=== PATIENT | female | born 1950 | race Caucasian/White ===

== ENCOUNTER → 2017-06-28 | Outpatient (CLI) | payer MEDICARE | END | disposition home or self-care (01) | LOC: LAB 12:30 → LAB SHORT 12:30 | PROVIDERS: Registered Nurse | DX: Z12.4 Encounter for screening for malignant neoplasm of cervix (principal) | CPT/HCPCS: G0123 ==

== ENCOUNTER 2019-04-17 07:30 | Day surgery (SDC) | payer MEDICARE ==
[~2019-04-17] VITALS: Ht 160 cm; Wt 85.3 kg
[~2019-04-17 07:30] MED LIST: ACET325 PO; ALIVE ONCE DAI1 EACH PO; CALCIUM + VIT1 EACH PO; COCONUT OIL100 GM PO; COLACE 2-IN-11 EACH PO; CRANBERRY PLUS1 EAC1 PO; Coq-10100 MG PO; FLUO10 PO; IBUP600 PO; MELATONIN 10 M1 EACH PO; PANT20 PO; TROSPIUM CHLORI20 MG PO; TURMERIC 500 M1 EACH
== END 2019-04-17 09:23 | disposition home or self-care (01) ==
LOC: ORSCSDS 07:30
PROVIDERS: Student in an Organized Health Care Education/Training Program
PROC: 0DB48ZX Excision of Esophagogastric Junction, Via Natural or Artificial Opening Endoscopic, Diagnostic (ICD-10-PCS; principal; 2019-04-17 08:45)
PROC: 0DB58ZX Excision of Esophagus, Via Natural or Artificial Opening Endoscopic, Diagnostic (ICD-10-PCS; principal; 2019-04-17 08:45)
DX: K21.9 Gastro-esophageal reflux disease without esophagitis (principal); R12 Heartburn; I10 Essential (primary) hypertension; F32.9 Major depressive disorder, single episode, unspecified; Z79.899 Other long term (current) drug therapy
CPT/HCPCS: 88305; J0330; J0461; J2405; J2704; J7120

== ENCOUNTER → 2020-12-04 | Outpatient (CLI) | payer MEDICARE | END | disposition home or self-care (01) | LOC: LAB SHORT 10:51 → LAB 10:51 | DX: N39.0 Urinary tract infection, site not specified (principal) | CPT/HCPCS: 87086 ==

== ENCOUNTER → 2022-01-27 | Outpatient (CLI) | payer MEDICARE | END | disposition home or self-care (01) | DX: R30.0 Dysuria (principal) ==

== ENCOUNTER → 2022-08-07 | Outpatient (CLI) | payer MEDICARE | END | disposition home or self-care (01) | LOC: LAB 08:50 → LAB SHORT 08:50 | DX: R30.0 Dysuria (principal) | CPT/HCPCS: 87077; 87086; 87186 ==

== ENCOUNTER 2023-01-29 22:37 | Observation (INO) | payer MEDICARE ==
[~2023-01-29] VITALS: Ht 160 cm; Wt 78.3 kg
[2023-01-29 23:14] LABS: BASOPHILS ABSOLUTE AUTO 0.03 K/mm3 (0.00-0.23); BASOPHILS PERCENT AUTO 0 % (0-2); EOSINOPHILS ABSOLUTE AUTO 0.11 K/mm3 (0.00-0.68); EOSINOPHILS PERCENT AUTO 1 % (0-6); Hemoglobin 11.8 g/dL (11.5-16.0); IMMATURE GRAN ABSOLUTE AUTO 0.02 K/mm3 (0.00-0.10); IMMATURE GRAN PERCENT AUTO 0 % (0-1); LYMPHOCYTES ABSOLUTE AUTO 2.79 K/mm3 (0.84-5.20); LYMPHOCYTES PERCENT AUTO 32 % (21-46); MONOCYTES ABSOLUTE AUTO 0.39 K/mm3 (0.16-1.47); MONOCYTES PERCENT AUTO 5 % (4-13); Mean Corpuscular HGB Conc 32.8 g/dL (31.5-36.5); Mean Corpuscular Volume 98 fL (80-100); Mean Platelet Volume 9.9 fL (9.1-12.4); NEUTROPHILS ABSOLUTE AUTO 5.37 K/mm3 (1.96-9.15); NEUTROPHILS PERCENT AUTO 62 % (41-73); Platelet Count 299 K/mm3 (150-400); RDW Coefficient Variation 13.5 % (11.7-14.2); RDW Standard Deviation 47.8 fL (35.1-46.3); Red Blood Cell Count 3.69 M/mm3 (3.80-5.20); White Blood Cell Count 8.71 K/mm3 (4.00-11.30)
[2023-01-29 23:32] LABS: Albumin, Blood 3.1 g/dL (3.4-5.0); Albumin/Globulin Ratio 0.7 (0.8-1.8); Bilirubin, Total 0.4 mg/dL (0.1-1.0); Bun/Creatinine Ratio 30.5 (12.0-20.0); Calcium, Blood 9.2 mg/dL (8.5-10.1); Creatinine, Blood 0.79 mg/dL (0.40-1.00); Globulin, Blood 4.4 g/dL (2.2-4.0); Potassium, Blood 3.7 mmol/L (3.5-5.5); Total Protein, Blood 7.5 g/dL (6.4-8.2)
[2023-01-30 02:34] LABS: Influenza A, PCR NEGATIVE (NEGATIVE); Influenza B, PCR NEGATIVE (NEGATIVE); Resp Syncytial Virus, PCR NEGATIVE (NEGATIVE); SARS-Cov-2 (COVID-19) PCR, MMC NEGATIVE (NEGATIVE)
[2023-01-30] MEDS ORDERED: PANTOPRAZOLE SO2010 PO (05:41)
[2023-01-30] MEDS ORDERED: METFORMIN HCL500 M2 PO (05:41)
[2023-01-30] MEDS ORDERED: TROSPIUM CHLORI20 M1 PO (05:41)
[2023-01-30] MEDS ORDERED: FLUO10 PO (05:41)
[2023-01-30] MEDS ORDERED: LISI20 PO (05:42)
[2023-01-30 07:51] VITALS: BP 177/88
[2023-01-30 09:23] LABS: Calcium, Blood 9.1 mg/dL (8.5-10.1); Creatinine, Blood 0.75 mg/dL (0.40-1.00); Potassium, Blood 4.4 mmol/L (3.5-5.5)
[2023-01-30 14:05] VITALS: BP 140/72
[2023-01-30 15:06] VITALS: BP 149/78
--- NOTE | 2023-01-30 17:53 | NUR ---
SHIFT SUMMARY: PATIENT A/OX4. PATIENT IS CALM, PLEASANT, COOPERATIVE c CARE PROVIDED AND ABLE TO MAKE NEEDS KNOWN. PATIENT DENIES CP/PRESSURE, SOB, N/V, DIZZINESS, AND GENERALIZED PAIN. PATIENT ON TELE SR/ST HR 93-103 BPM. BP HAS IMPROVED. PATIENT WAS ON 2L OF O2 VIA NC WHEN ARRIVED TO UNIT, PLACED ON RA AT AROUND 1510. PATIENT O2 ON RA HAS BEEN SATTING 92-96%. PATIENT RECEIVED IV LASIX THIS PM. PATIENT IS EATING AND DRINKING WELL, CONTINENCE OF BLADDER AND AMBULATES TO BATHROOM INDEPENDENTLY. PATIENT HAD A TOTAL OF 1,900 MLS YELLOW URINE OUTPUT THIS SHIFT. ECHO DONE TODAY c RESULT. PIV TO RAC SALINE LOCKED. CALL LIGHT IN REACH.
[2023-01-30 20:23] VITALS: BP 159/68
--- NOTE | 2023-01-31 03:09 | NUR ---
TELEMETRY MANOLO FROM TELE CALLED TO INFORM THIS NURSE THAT THE PTS HEART RATE WAS IN THE 130S. CHECKED ON PT WHO WAS JUST RETURNING TO BED AFTER USING THE RESTROOM. PT DENIES ANY CP, PRESSURE, DIZZINESS, OR PALPATATIONS. RTHYMN STRIP UPLOADED TO CHART BY TELE. WILL CONTINUE TO MONITOR.
--- NOTE | 2023-01-31 03:38 | NUR ---
TELEMETRY NOTIFIED OF HR BETWEEN 130-150. PT WAS UP OOB AND MOVING AROUND. PT BACK IN BED RESTING WITH HR AT 120. WILL CONTINUE TO MONITOR.
--- NOTE | 2023-01-31 04:06 | NUR ---
TELEMETRY NOTIFIED BY TELE OF RATE CHANGE FROM SR TO AFIB. CALLED TO REPORT TO HOSPITALIST DR DIAS. ORDERS PLACED.
--- NOTE | 2023-01-31 04:39 | NUR ---
CALLED TELE FOR REPORT OF RHYTHM. CURRENTLY PT IS AFIB AT 124. NO SIGNS OR SYMPTOMS. PT LYING IN BED RESTING. WILL CONTINUE TO MONITOR.
--- NOTE | 2023-01-31 04:42 | NUR ---
SHIFT SUMMARY PT IS A&O X4, CALM AND COOPERATIVE WITH CARE. INDEPENDENT IN ROOM/CONTINENT. PT CONVERTED FROM SR TO AFIB DURING SHIFT. SEE ORDERS. CURRENTLY PT IS AFIB AT 124. NO SIGNS OR SYMPTOMS. NOTIFIED. NO O2 THIS SHIFT, SATS ABOVE 92%. PT DENIES SHORTNESS OF BREATH AND SATES THAT THE TIGHTNESS SHE WAS EXPERIENCING HAS IMPROVED. PT SLEPT OFF AND ON THROUGHOUT THE NIGHT. BED KEPT IN LOWEST POSITION WITH CALL LIGHT WITHIN REACH. WILL CONTINUE TO MONITOR.
[2023-01-31 05:18] VITALS: BP 123/87
[2023-01-31 05:57] LABS: BASOPHILS ABSOLUTE AUTO 0.06 K/mm3 (0.00-0.23); BASOPHILS PERCENT AUTO 1 % (0-2); EOSINOPHILS ABSOLUTE AUTO 0.11 K/mm3 (0.00-0.68); EOSINOPHILS PERCENT AUTO 2 % (0-6); Hematocrit 37.3 % (33.0-51.0); Hemoglobin 12.3 g/dL (11.5-16.0); IMMATURE GRAN ABSOLUTE AUTO 0.02 K/mm3 (0.00-0.10); IMMATURE GRAN PERCENT AUTO 0 % (0-1); LYMPHOCYTES ABSOLUTE AUTO 2.87 K/mm3 (0.84-5.20); LYMPHOCYTES PERCENT AUTO 38 % (21-46); MONOCYTES ABSOLUTE AUTO 0.65 K/mm3 (0.16-1.47); MONOCYTES PERCENT AUTO 9 % (4-13); Mean Corpuscular HGB 31.5 pg (26.0-34.0); Mean Corpuscular Volume 95 fL (80-100); Mean Platelet Volume 10.6 fL (9.1-12.4); NEUTROPHILS ABSOLUTE AUTO 3.81 K/mm3 (1.96-9.15); NEUTROPHILS PERCENT AUTO 51 % (41-73); Platelet Count 321 K/mm3 (150-400); RDW Coefficient Variation 13.6 % (11.7-14.2); Red Blood Cell Count 3.91 M/mm3 (3.80-5.20); White Blood Cell Count 7.52 K/mm3 (4.00-11.30)
[2023-01-31 06:58] LABS: Albumin, Blood 3.1 g/dL (3.4-5.0); Albumin/Globulin Ratio 0.7 (0.8-1.8); Bilirubin, Total 0.6 mg/dL (0.1-1.0); Bun/Creatinine Ratio 25.4 (12.0-20.0); Calcium, Blood 9.1 mg/dL (8.5-10.1); Creatinine, Blood 0.75 mg/dL (0.40-1.00); Globulin, Blood 4.3 g/dL (2.2-4.0); Potassium, Blood 3.4 mmol/L (3.5-5.5); Total Protein, Blood 7.4 g/dL (6.4-8.2)
[2023-01-31 07:20] VITALS: BP 132/78
--- NOTE | 2023-01-31 12:16 | NUR ---
Met with patient to review advance directive. Pt is a very active person. 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 Her and her huasband have been discussing advance directives. They are having diffficulty getting the children to discuss them and so have not completed one. review of recent symptoms and medical care. Advised that on discharge get comprehensive labs and medical workup on all systems. Pt wants to be a full code at this time. Brief ly reviewed AD and choices. Provided our office number if they have question we can help with. Pt presents as having a strong support system. Advied her to do daily weights and track her intake. She laghed and we had a nurse moment of we are horrible patients! Will remain available after DC.
--- NOTE | 2023-01-31 13:42 | NUR ---
NOTE: PATIENT ON TELE, PER REPORT THIS AM FROM NOC RN PATIENT WAS CONVERTED TO AFIB AT AROUND 0100'SH HR 130'S-150'S BPM. THIS SHIFT, PATIENT AFIB HR RANGES 117-130'S BPM, c ACTIVITIES GOES UP TO 160'S. PATIENT DENIES CP/PRESSURE, PALPATATIONS, SOB, AND DIZZINESS. ALTHOUGH, PATIENT REPORTS "FEELING FLUSHED AND HOT." THIS RN WAS ON LUNCH BREAK AT AROUND 1309 WHEN MARKETING ROTATION ASSOCIATE CALLED, PER MARKETING ROTATION ASSOCIATEALISA PEARCE PATIENT CONVERTED TO NSR HR IN THE 70'S BPM. NOTIFIED DR. JACOME REGARDING THIS EVENT. PER DR. JACOME TO CONTINUE TO MONITOR PATIENT, AT AROUND 1500 IF RATE AND RHYTM CONTINUES THE SAME PATIENT MIGHT ABLE TO GO HOME THIS PM.
[2023-01-31] MEDS ORDERED: ELIQUIS5 M2 PO (15:09)
[2023-01-31] MEDS ORDERED: FURO20 PO (15:09)
[2023-01-31] MEDS ORDERED: METO25 PO (15:10)
[2023-01-31] MEDS ORDERED: POTCHL20ER PO (16:07)
--- NOTE | 2023-01-31 16:20 | NUR ---
SHIFT/DISCHARGE SUMMARY: SEE LAST NOTE EARLIER. PATIENT A/OX4. CALM, PLEASANT AND COOPERATIVE c CARE. USES CALL LIGHT APPROPRIATELY AND ABLE TO MAKE NEEDS KNOWN. PATIENT DENIES CP/PRESSURE, SOB, DIZZINESS, N/V AND GENERALIZED PAIN. AFIBRILE. PATIENT ON TELE, NSR SINCE 1310 HR IN THE 70'S BPM. PATIENT RECEIVED SCHEDULED MEDS PER EMAR. PATIENT REPORTS EAGER TO GO HOME TODAY, PER PATIENT "I'M HAVING A GREEN PARTY I HAVE 14 PEOPLE COMING TO MY HOUSE AND I WOULD LIKE TO BE THERE IF I CAN." DR. JACOME IS AWARE OF THIS REQUEST. PATIENT IS EATING AND DRINKING WELL, CONTINENCE OF BOWELS/BLADDER AND HAS BEEN AMBULATING TO BATHROOM T/O SHIFT. BP HAS IMPROVED. PIV TO RAC DC'D. PATIENT DISCHARGE HOME. DISCHARGE INSTRUCTIONS PACKET GIVEN TO PATIENT. EDUCATE PATIENT REGARDING ADMITTING DX'S OF ACUTE CHF, S/S, TX, SELF CARE, DAILY WEIGHTS, DIET AND TO FOLLOW UP c PCP. PATIENT VERBALIZED UNDERSTANDING AND NO FURTHER QUESTIONS. RX WAS FAXED TO PATIENT PREFERRED PHARMACY ([facility]). ALL PATIENT PERSONAL BELONGINGS WERE SENT HOME c THE PATIENT. PATIENT LEFT THE ROOM AT 1600 AND WAS TRANSPORTED VIA WHEELCHAIR BY BENDER HELPER STAFF, EMY BARCENAS TO PATIENT ENTRANCE.
== END 2023-01-31 15:44 | disposition home or self-care (01) ==
LOC: ER 22:37 → MEDS 22:38 → ERHOLD 22:38 → MEDS 01-30 07:42
PROVIDERS: Emergency Medicine; ADMIT Hospitalist
DX: I11.0 Hypertensive heart disease with heart failure (principal); I50.31 Acute diastolic (congestive) heart failure; I48.0 Paroxysmal atrial fibrillation; J96.01 Acute respiratory failure with hypoxia; I25.10 Atherosclerotic heart disease of native coronary artery without angina pectoris; E11.9 Type 2 diabetes mellitus without complications; K21.9 Gastro-esophageal reflux disease without esophagitis; Z87.891 Personal history of nicotine dependence; Z79.84 Long term (current) use of oral hypoglycemic drugs; Z79.899 Other long term (current) drug therapy; Z20.822 Contact with and (suspected) exposure to COVID-19
CPT/HCPCS: 0241U; 36415; 71046; 71260; 80048; 80053; 83605; 83880; 84145; 84443; 84484; 85025; 85379; 87040; 93005; 93010; 93306; 96365; 96366; 96372; 96375; 96376; 99285-25; A9270; C9113; G0378; J0456; J0692; J1650; J1940; J7050; Q9967

== ENCOUNTER 2023-04-05 05:57 | Day surgery (SDC) | payer MEDICARE ==
[2023-04-05] VITALS (13 sets, daily range): BP systolic 85–135; BP diastolic 49–108
[~2023-04-05] VITALS: Ht 157.5 cm; Wt 82.0 kg
[~2023-04-05 05:57] MED LIST changes: +ELIQUIS5 M2 PO; +FURO20 PO; +LISI20 PO; +METFORMIN HCL500 M2 PO; +METO25 PO; +PANTOPRAZOLE SO2010 PO; +POTCHL20ER PO; +TROSPIUM CHLORI20 M1 PO
[2023-04-05] MEDS ORDERED: JARDIANCE10 MG PO (06:25)
--- NOTE | 2023-04-05 07:35 | NUR ---
PT AWAKE AND CONVERSING APPROPRIATELY, DENIES PAIN POST PROCEDURE; VSS, PT ON RA 98%. PT'S AT BEDSIDE, ATTENTIVE.
--- NOTE | 2023-04-05 08:14 | NUR ---
PT DRESSED SELF WITHOUT ISSUE, IV REMOVED-CANNULA INTACT. PT AND RECEIVED DISCHARGE INSTRUCTIONS, MED LIST AND AFTER CARE INSTRUCTIONS; VERBALIZED GOOD UNDERSTANDING. PT LEFT FACILITY VIA W/C, CONDITION STABLE.
== END 2023-04-05 08:14 | disposition home or self-care (01) ==
LOC: MHTC 05:57
DX: I48.19 Other persistent atrial fibrillation (principal); I48.92 Unspecified atrial flutter; E78.5 Hyperlipidemia, unspecified; E11.9 Type 2 diabetes mellitus without complications; I50.30 Unspecified diastolic (congestive) heart failure; I11.0 Hypertensive heart disease with heart failure; Z79.84 Long term (current) use of oral hypoglycemic drugs
CPT/HCPCS: 93005; 93010; J2704; J7030

== ENCOUNTER 2023-10-21 06:38 | Day surgery (SDC) | payer MEDICARE ==
[~2023-10-21] VITALS: Ht 160 cm; Wt 84.3 kg
[2023-10-21] VITALS (13 sets, daily range): BP systolic 120–157; BP diastolic 59–79
[~2023-10-21 06:38] MED LIST changes: +Acetaminophen650 M1 PO; +COQ-10100 MG PO; +DOCU100 PO; +JARDIANCE10 MG PO; +TURMERIC500 M2 PO; +TYLENOL PM PO
[2023-10-21] MEDS ORDERED: CeFAZolin Sodium 2,000 MG in NS 100 ML IV SCH ×2 (06:40→16:00)
[2023-10-21] MEDS ORDERED: Tranexamic Acid 100 ML IV SCH (06:40)
[2023-10-21] MEDS ORDERED: Chlorhexidine Mouth Care 15 ML UDC MT SCH (06:40)
[2023-10-21] MEDS ORDERED: Ropivacaine 0.5% HCl/Pf 123.125 MG,EPINEPHrine HCL 0.25 MG,Ketorolac Tromethamine 15 MG... INFIL SCH (06:40)
[2023-10-21] MEDS ORDERED: Lactated Ringer's 1,000 ML IV SCH ×3 (06:40→10:10)
[2023-10-21] MEDS ORDERED: Acetaminophen 500 MG Tab PO SCH ×3 (06:40→16:00)
[2023-10-21] MEDS ORDERED: OxyCODONE HCL 10 MG TABCR PO SCH (06:40)
[2023-10-21] MEDS ORDERED: Midazolam HCl 1MG / ML 2ML Vial IV ONE (07:45)
[2023-10-21] MEDS ORDERED: FentaNYL Citrate 50 MCG/ML 2 ML Injection ONE (07:47)
[2023-10-21] MEDS ORDERED: Lidocaine HCl 2% 20 ML MDV ONE (07:47)
[2023-10-21] MEDS ORDERED: Bupivacaine 0.5% HCl 5 MG/ML 30MLVIAL ONE (07:47)
[2023-10-21] MEDS ORDERED: propofoL 40 ML IV ONE (07:47)
[2023-10-21] MEDS ORDERED: Docusate Sodium 100 MG Cap PO PRN (07:50)
[2023-10-21] MEDS ORDERED: OxyCODONE HCL 5 MG TAB PO PRN ×4 (07:55→10:15)
[2023-10-21] MEDS ORDERED: Bisacodyl 10 MG Supp PR PRN ×2 (07:55→10:10)
[2023-10-21] MEDS ORDERED: Ondansetron HCl 2 MG / ML 2ML Vial IV PRN ×2 (07:55→10:10)
--- NOTE | 2023-10-21 07:59 | NUR ---
Ambulatory in Day Surgery. History, Chart, Medications and Allergies reviewed before start of procedure. Lungs clear T/O to Auscultation. Patient confirms NPO status and agrees with scheduled surgery. Pre-Op teaching done. Pt verbalizes understanding. PT BELONGINGS PLACED UNDERNEATH GURNEY FOR SAFEKEEPING.
[2023-10-21] MEDS ORDERED: Promethazine HCl 25 MG Tab PO PRN ×2 (08:00→10:15)
[2023-10-21] MEDS ORDERED: HYDROmorphone HCl/Pf 1MG SYR IV PRN ×2 (08:00→10:15)
[2023-10-21] MEDS ORDERED: DiphenhydrAMINE HCL 25 MG Cap PO PRN ×2 (08:00→10:15)
[2023-10-21] MEDS ORDERED: Metoclopramide HCl 5MG / ML 2ML Vial IV PRN ×2 (08:05→10:10)
[2023-10-21] MEDS ORDERED: Magnesium Hydroxide Conc 10 ML UDC PO PRN ×2 (08:05→10:10)
[2023-10-21] MEDS ORDERED: ePHEDrine Sulfate 50 MG/ML 1ML Injection ONE (08:10)
[2023-10-21] MEDS ORDERED: Phenylephrine HCl 100 MCG/ML-NS 10MLSYR (1MG/10ML) ONE (08:37)
[2023-10-21] MEDS ORDERED: CO Q10 PO SCH (09:00)
[2023-10-21] MEDS ORDERED: propofoL 20 ML IV ONE (09:03)
[2023-10-21] MEDS ORDERED: Insulin Regular 100 UNIT/ML 10ML Vial SC SCH (11:30)
[2023-10-21 11:34] LABS: Calcium, Blood 8.6 mg/dL (8.5-10.1); Creatinine, Blood 1.1 mg/dL (0.40-1.00); Potassium, Blood 4.8 mmol/L (3.5-5.5)
--- NOTE | 2023-10-21 11:57 | NUR ---
ARRIVAL PT ARRIVED TO UNIT VIA RTKA. PT MEDICATED FOR PAIN PER EMAR. REPORTS TOLERABLE, DENIENS NUMBNESS BUT STATES LEG IS HEAVY. TOLERATING DIET WELL. NO NAUSEA. ON ROOM AIR. SPOUSE AT BEDSIDE. KELSIE HUDSON AND [facility] GROSS ON.
[2023-10-21] MEDS ORDERED: Ketorolac Tromethamine 15mg Vial IV SCH (12:00)
--- NOTE | 2023-10-21 17:56 | NUR ---
SHIFT SUMMARY POD 1 RTKA DRESSING TO LEG CDI. POLAR BECCA ON DURING SHIFT. PT AMBULATED WELL WITH THERAPY AND WILL WORK WITH THEM AGAIN IN THE MORNING. PAIN CONTROLLED PER EMAR. PT HAS VOIDED. TOLERATING DIET WELL.
[2023-10-21] MEDS ORDERED: Metoprolol Tartrate 25 MG Tab PO SCH (21:00)
[2023-10-21] MEDS ORDERED: Docusate Sodium 100 MG Cap PO SCH ×2 (21:00)
[2023-10-22 00:24] VITALS: BP 137/71
[2023-10-22 05:06] LABS: BASOPHILS ABSOLUTE AUTO 0.02 K/mm3 (0.00-0.23); BASOPHILS PERCENT AUTO 0 % (0-2); EOSINOPHILS ABSOLUTE AUTO 0.13 K/mm3 (0.00-0.68); EOSINOPHILS PERCENT AUTO 2 % (0-6); Hematocrit 30.5 % (33.0-51.0); IMMATURE GRAN ABSOLUTE AUTO 0.02 K/mm3 (0.00-0.10); IMMATURE GRAN PERCENT AUTO 0 % (0-1); LYMPHOCYTES ABSOLUTE AUTO 2.21 K/mm3 (0.84-5.20); LYMPHOCYTES PERCENT AUTO 35 % (21-46); MONOCYTES ABSOLUTE AUTO 0.41 K/mm3 (0.16-1.47); MONOCYTES PERCENT AUTO 7 % (4-13); Mean Corpuscular HGB Conc 32.8 g/dL (31.5-36.5); Mean Corpuscular Volume 101 fL (80-100); Mean Platelet Volume 9.8 fL (9.1-12.4); NEUTROPHILS ABSOLUTE AUTO 3.54 K/mm3 (1.96-9.15); NEUTROPHILS PERCENT AUTO 56 % (41-73); Platelet Count 234 K/mm3 (150-400); RDW Coefficient Variation 12.4 % (11.7-14.2); RDW Standard Deviation 45.8 fL (35.1-46.3); Red Blood Cell Count 3.03 M/mm3 (3.80-5.20); White Blood Cell Count 6.33 K/mm3 (4.00-11.30)
[2023-10-22 05:27] LABS: Bun/Creatinine Ratio 23.1 (12.0-20.0); Creatinine, Blood 1.04 mg/dL (0.40-1.00); Magnesium, Blood 1.6 mg/dL (1.6-2.4); Potassium, Blood 4.1 mmol/L (3.5-5.5)
[2023-10-22] MEDS ORDERED: Pantoprazole Sodium 20 MG Tab PO SCH (06:00)
[2023-10-22 07:21] VITALS: BP 146/53
--- NOTE | 2023-10-22 08:12 | NUR ---
SHIFT SUMMARY NOC. PT POD 1 FOR RIGHT TOTAL KNEE. PT A/O X4. PT AQUACEL AND JARRET WRAP C/D/I WITH POLAR PACK IN PLACE. PT MEDICATED FOR PAIN WITH REPORTED RELIEF OF SX. PT VOIDING URINE AND TOLERATING PO. PT AMBULATES TO BR WITH FWW, GAIT BELT, AND SBA. PT RESTED WITH EYES CLOSED AND CALL LIGHT IN REACH.
[2023-10-22] MEDS ORDERED: Furosemide 20 MG Tab PO SCH (09:00)
[2023-10-22] MEDS ORDERED: Aspirin 81 MG Chew PO SCH (09:00)
[2023-10-22] MEDS ORDERED: MetFORMIN HCl 500 mg PO SCH (09:00)
[2023-10-22] MEDS ORDERED: FLUoxetine HCl 10 MG Cap PO SCH (09:00)
[2023-10-22] MEDS ORDERED: Lisinopril 20 MG Tab PO SCH (09:00)
[2023-10-22] MEDS ORDERED: Trospium Chloride 20 MG Tab PO SCH (09:00)
[2023-10-22] MEDS ORDERED: Empagliflozin 10 MG TAB PO SCH (09:00)
--- NOTE | 2023-10-22 09:59 | NUR ---
DISCHARGE PT EDUCATED ON AND RECEIVED PRINTED DC INSTRUCTIONS AND VERB AN UNDERSTANDING. EXTRA DRESSINGS GIVEN TO PT. PT REPORTS ALL RX'S FILLED PRIOR TO SURGERY. PT REPORTS PAIN MANAGED, VOIDING SPONTANEOUSLY, AND CLEARED THERAPY. IV DC'D BY PERFECT BINDER FEEDER OFFBEARER. PT WAITING FOR RIDE HOME.
--- NOTE | 2023-10-22 11:43 | NUR ---
Pt. is awake and sitting in a recliner awaiting discharge when she welcomes my visit. Pt. is pleasant, and recognizes this sales negotiator from the community. Facilitated a life review and considered matters of pedro anf belief. Pt. displays evidence of a joyful and hopeful spirit. Prayed with Pt. Pt. verbalized gratitude for the prayer and the spiritual care visit.
== END 2023-10-22 11:30 | disposition home or self-care (01) ==
LOC: ORSCMMR 06:38 → ORD 08:00 → ORSCMMR 08:00 → SURS 10:18 → ORSCMMR 10:18 → SURS 10-22 11:30
PROVIDERS: Orthopaedic Surgery
PROC: 0SRC0JA Replacement of Right Knee Joint with Synthetic Substitute, Uncemented, Open Approach (ICD-10-PCS; principal; 2023-10-21 08:00)
DX: M17.11 Unilateral primary osteoarthritis, right knee (principal); I48.91 Unspecified atrial fibrillation; E11.22 Type 2 diabetes mellitus with diabetic chronic kidney disease; I12.9 Hypertensive chronic kidney disease with stage 1 through stage 4 chronic kidney disease, or unspecified chronic kidney disease; N18.9 Chronic kidney disease, unspecified; E66.9 Obesity, unspecified; Z68.32 Body mass index [BMI] 32.0-32.9, adult; K21.9 Gastro-esophageal reflux disease without esophagitis; Z79.01 Long term (current) use of anticoagulants; Z79.84 Long term (current) use of oral hypoglycemic drugs; Z79.899 Other long term (current) drug therapy
CPT/HCPCS: 36415; 73560-RT; 80048; 82947; 83735; 85025; 97110; 97116; 97162; A9270; C1713; C1776; J0171; J0690; J0735; J1815; J1885; J2250; J2371; J2470; J2704; J2795; J3010; J7120

== ENCOUNTER 2024-11-01 12:45 | Day surgery (SDC) | payer MEDICARE ==
[~2024-11-01] VITALS: Ht 160 cm; Wt 84.3 kg
[~2024-11-01 12:45] MED LIST changes: +Ondansetron 4 MG SoluTab MM PRN; +Povidone-Iodine 450 DROP/30 ML Solution ONE; +Tetracaine HCl/Pf 0.5% Opth Soln 4 ml ONE
--- NOTE | 2024-11-01 13:14 | NUR ---
11/01/24 1314 Rosario Lee PT STATES ANXIETY LEVEL IS 0/10 IN PREOP PT IS ON CONTINUOUS PULSE OX PT HAS CALL LIGHT IN HAND
--- NOTE | 2024-11-01 14:16 | NUR ---
11/01/24 1416 Roselia López 1411 BP:119/57 HR:59 02:97% RESP:16
[2024-11-01 14:59] VITALS: BP 126/60
[2024-11-02] MEDS ORDERED: Povidone-Iodine 450 DROP/30 ML Solution LEFTEYE SCH (06:00)
[2024-11-02] MEDS ORDERED: PHENYLEPHRINE\\TROPICAMIDE\\TETRACAINE OPHTHALMIC DILATING SOLN LEFTEYE PRN (06:00)
[2024-11-02] MEDS ORDERED: Balanced Salt Epinephrine Irrigation Solution 500 mL IR SCH (06:00)
[2024-11-02] MEDS ORDERED: Moxifloxacin HCL 0.5 MG/0.1 ML 0.4MLSYR LEFTEYE SCH (06:00)
== END 2024-11-01 14:58 | disposition home or self-care (01) ==
LOC: ORSCSDS 12:45
PROVIDERS: Student in an Organized Health Care Education/Training Program
PROC: 08RK3JZ Replacement of Left Lens with Synthetic Substitute, Percutaneous Approach (ICD-10-PCS; principal; 2024-11-01 14:30)
DX: E11.36 Type 2 diabetes mellitus with diabetic cataract (principal); H25.813 Combined forms of age-related cataract, bilateral; I48.91 Unspecified atrial fibrillation; I10 Essential (primary) hypertension; E78.5 Hyperlipidemia, unspecified; Z79.01 Long term (current) use of anticoagulants; Z79.84 Long term (current) use of oral hypoglycemic drugs; Z79.899 Other long term (current) drug therapy; Z87.891 Personal history of nicotine dependence
CPT/HCPCS: 80053; 80061; 85025; A9270; V2632

== ENCOUNTER 2024-11-07 08:49 | Day surgery (SDC) | payer MEDICARE ==
[~2024-11-07] VITALS: Ht 157.5 cm; Wt 84.7 kg
[~2024-11-07 08:49] MED LIST changes: +Balanced Salt Epinephrine Irrigation Solution 500 mL IR SCH; +Moxifloxacin HCL 0.5 MG/0.1 ML 0.4MLSYR RIGHTEYE SCH; +PHENYLEPHRINE\\TROPICAMIDE\\TETRACAINE OPHTHALMIC DILATING SOLN RIGHTEYE PRN; +Povidone-Iodine 450 DROP/30 ML Solution RIGHTEYE SCH
--- NOTE | 2024-11-07 10:16 | NUR ---
11/07/24 1016 Rosario Apple HR:60 BP:130/65 SPO2: 95% ON 10L BLOW BY O2
[2024-11-07 10:38] VITALS: BP 123/65
== END 2024-11-07 10:57 | disposition home or self-care (01) ==
LOC: ORSCSDS 08:49
PROVIDERS: Student in an Organized Health Care Education/Training Program
PROC: 08RJ3JZ Replacement of Right Lens with Synthetic Substitute, Percutaneous Approach (ICD-10-PCS; principal; 2024-11-07 10:30)
DX: E11.36 Type 2 diabetes mellitus with diabetic cataract (principal); H25.811 Combined forms of age-related cataract, right eye; Z96.1 Presence of intraocular lens; Z87.891 Personal history of nicotine dependence; I48.91 Unspecified atrial fibrillation; E78.5 Hyperlipidemia, unspecified; H04.123 Dry eye syndrome of bilateral lacrimal glands; I10 Essential (primary) hypertension; Z79.84 Long term (current) use of oral hypoglycemic drugs; Z79.899 Other long term (current) drug therapy
CPT/HCPCS: A9270; V2632